=== PATIENT | female | born 1975 | race Caucasian/White ===

== ENCOUNTER 2017-03-05 01:12 | Observation (INO) | payer OTHER ==
[2017-03-05] VITALS (9 sets, daily range): BP systolic 112–156; BP diastolic 60–80; PULSE 80–110; RESP 16–18; TEMP 96.8–99.2; O2SAT 93–100
[~2017-03-05] VITALS: Ht 160 cm; Wt 97.8 kg
[~2017-03-05 01:12] MED LIST: ALBU8I INH; CLIN1CAP5 PO; PERC7.5T13 PO; PHEN37.5 PO; VALI5TAB PO
[2017-03-05] MEDS ORDERED: VENTAER INH (01:24)
[2017-03-05] MEDS ORDERED: SYMB80AE INH (01:24)
[2017-03-05] MEDS ORDERED: SODIUM CHLOR 0.9% 1000 ML INJ 1,000 ML IV SCH ×2 (01:29→02:45)
[2017-03-05] MEDS ORDERED: SODIUM CHLORIDE 0.9% FLUSH 10 ML FLUSH IV FLUSH PRN ×2 (01:30→11:00)
[2017-03-05] MEDS ORDERED: ONDANSETRON HCL 4 MG/2 ML VIAL IVP ONE (01:30)
[2017-03-05] MEDS ORDERED: MORPHINE SULFATE 8 MG/ML INJ IV PUSH ONE (01:30)
--- NOTE | 2017-03-05 01:32 | PD ---
HPI Chief Complaint: Abdominal Pain Time Seen by Provider: 01:26 Travel History International Travel<30 days: No Contact w/Intl Traveler<30days: No Traveled to known affect area: No History of Present Illness HPI 42-year-old female approximately 15 hours of right abdomen pain. Onset gradual. Pain is now constant. Severity moderate. No fever. Nausea reported as associated symptom. No vaginal discharge or bleed. Last menstruation 2 days prior. No similar prior episodes. PFSH Past Medical History Asthma: Yes Blood Disorders: No Anxiety: Yes Cancer: No Cardiovascular Problems: No Diminished Hearing: No Endocrine: No Genitourinary: No Immune Disorder: No Musculoskeletal: No Neurologic: No Psychiatric: Yes Reproductive: No Respiratory: Yes Tetanus Vaccination: Unknown Influenza Vaccination: No ?: Not LMP: 03/02/2017 : 1 Para: 1 Past Surgical History Abdominal Surgery: Yes (HERNIA REPAIR) Gynecologic Surgery: Yes (C SECTION) Pacemaker: No Other Surgery: Yes (abd tuck) Social History Alcohol Use: No Tobacco Use: No Substance Use: No Allergies-Medications (Allergen,Severity, Reaction): Coded Allergies: penicillin G (Unverified Allergy, Severe, HIVES & ITCHING, 03/05/17) sulfamethoxazole (Unverified Allergy, Severe, HIVES & ITCHING, 03/05/17) trimethoprim (Unverified Allergy, Severe, HIVES & ITCHING, 03/05/17) *MDRO Multi-Drug Resistant Organism (Unverified Allergy, Unknown, 03/05/17) MRSA 2013 Sulfa (Sulfonamide Antibiotics) (Unverified Allergy, Unknown, 03/05/17) Reported Meds & Prescriptions Reported Meds & Active Scripts Active Reported Symbicort Inh (Budesonide/Formoterol Fumarate) 80-4.5 Mcg/Act Aero 1 Puff INH Q12HR Ventolin Hfa 18 GM Inh (Albuterol Sulfate) 90 Mcg/Act Aer 2 Puff INH Q4-6H PRN Review of Systems Except as stated in HPI: all other systems reviewed are Neg Physical Exam Narrative GENERAL: 42-year-old female no acute distress pleasant SKIN: Warm and dry. HEAD: Atraumatic. Normocephalic. EYES: Pupils equal and round. No scleral icterus. No injection or drainage. ENT: No nasal bleeding or discharge. Mucous membranes pink and moist. NECK: Trachea midline. No JVD. CARDIOVASCULAR: Regular rate and rhythm. RESPIRATORY: No accessory muscle use. Clear to auscultation. Breath sounds equal bilaterally. GASTROINTESTINAL: Soft. Minimal tenderness palpation right lower quadrant. No flank tenderness percussion. MUSCULOSKELETAL: Extremities without clubbing, cyanosis, or edema. No obvious deformities. NEUROLOGICAL: Awake and alert. No obvious cranial nerve deficits. Motor grossly within normal limits. Five out of 5 muscle strength in the arms and legs. Normal speech. PSYCHIATRIC: Appropriate mood and affect; insight and judgment normal. Data Data Last Documented VS Vital Signs Date Time Temp Pulse Resp B/P (MAP) Pulse Ox O2 Delivery O2 Flow Rate FiO2 03/05/17 01:44 100 Room Air 03/05/17 01:14 99.2 106 16 Vital signs reviewed Orders Orders Complete Blood Count With Diff (03/05/17 01:29) Comprehensive Metabolic Panel (03/05/17 01:29) Lipase (03/05/17 01:29) Urinalysis - C+S If Indicated (03/05/17 01:29) Ct Abd/Pel W Iv Contrast(Rout) (03/05/17 01:29) Iv Access Insert/Monitor (03/05/17 01:29) Ecg Monitoring (03/05/17:29) Oximetry (03/05/17 01:29) Ondansetron Inj (Zofran Inj) (03/05/17 01:30) Sodium Chlor 0.9% 1000 Ml Inj (Ns 1000 M (03/05/17 01:29) Sodium Chloride 0.9% Flush (Ns Flush) (03/05/17 01:30) Morphine Inj (Morphine Inj) (03/05/17 01:30) Ed Urine Pregnancytest Poc (03/05/17 01:29) Iohexol 350 Inj (Omnipaque 350 Inj) (03/05/17 02:00) Ciprofloxacin 400 Mg Premix (Cipro 400 M (03/05/17 02:30) Metronidazole 500 Mg Inj (Flagyl 500 Mg (03/05/17 02:30) Sodium Chlor 0.9% 1000 Ml Inj (Ns 1000 M (03/05/17 02:45) Admit Order (Ed Use Only) (03/05/17 02:31) Vital Signs (Adult) Q4H (03/05/17 02:31) Diet Npo (03/05/17 Breakfast) Activity Oob With Assistance (03/05/17 02:31) Ondansetron Inj (Zofran Inj) (03/05/17 02:45) Morphine Inj (Morphine Inj) (03/05/17 02:45) ^ Call Physician (03/05/17 02:31) Labs Laboratory Tests Test 03/05/17 01:37 White Blood Count 13.6 TH/MM3 Red Blood Count 4.53 MIL/MM3 Hemoglobin 12.5 GM/DL Hematocrit 38.9 % Mean Corpuscular Volume 85.8 FL Mean Corpuscular Hemoglobin 27.6 PG Mean Corpuscular Hemoglobin Concent 32.2 % Red Cell Distribution Width 14.2 % Platelet Count 255 TH/MM3 Mean Platelet Volume 9.2 FL Neutrophils (%) (Auto) 77.2 % Lymphocytes (%) (Auto) 13.6 % Monocytes (%) (Auto) 5.9 % Eosinophils (%) (Auto) 2.7 % Basophils (%) (Auto) 0.6 % Neutrophils # (Auto) 10.5 TH/MM3 Lymphocytes # (Auto) 1.9 TH/MM3 Monocytes # (Auto) 0.8 TH/MM3 Eosinophils # (Auto) 0.4 TH/MM3 Basophils # (Auto) 0.1 TH/MM3 CBC Comment DIFF FINAL Differential Comment Urine Color YELLOW Urine Turbidity HAZY Urine pH 5.0 Urine Specific [place] 1.024 Urine Protein TRACE mg/dL Urine Glucose (UA) NEG mg/dL Urine Ketones NEG mg/dL Urine Occult Blood LARGE Urine Nitrite NEG Urine Bilirubin NEG Urine Urobilinogen LESS THAN 2.0 MG/DL Urine Leukocyte Esterase NEG Urine RBC 4 /hpf Urine WBC 3 /hpf Urine Squamous Epithelial Cells 4 /hpf Urine Bacteria RARE /hpf Urine Hyaline Casts 1 /lpf Urine Mucus FEW /lpf Microscopic Urinalysis Comment CULT NOT INDICATED Blood Urea Nitrogen 10 MG/DL Creatinine 0.83 MG/DL Random Glucose 92 MG/DL Total Protein 7.9 GM/DL Albumin 3.7 GM/DL Calcium Level 9.1 MG/DL Alkaline Phosphatase 86 U/L Aspartate Amino Transf (AST/SGOT) 14 U/L Alanine Aminotransferase (ALT/SGPT) 24 U/L Total Bilirubin 0.4 MG/DL Sodium Level 139 MEQ/L Potassium Level 4.0 MEQ/L Chloride Level 104 MEQ/L Carbon Dioxide Level 27.8 MEQ/L Anion Gap 7 MEQ/L Estimat Glomerular Filtration Rate 75 ML/MIN Lipase 150 U/L MDM Medical Decision Making Medical Screen Exam Complete: Yes Emergency Medical Condition: Yes Medical Record Reviewed: Yes Differential Diagnosis Constipation, Gastritis, Acute Cholecystitis, Biliary Colic, Pancreatitis, LAND , Hepatitis, Bowel Obstruction, Cystitis, Mesenteric Ischemia, AAA, Appendicitis , Renal Stone/Hydronephrosis, GERD, perforated viscous Narrative Course CBC & BMP Diagram 03/05/17 01:37 Total Protein 7.9, Albumin 3.7, Calcium Level 9.1, Alkaline Phosphatase 86, Aspartate Amino Transf (AST/SGOT) 14 L, Alanine Aminotransferase (ALT/SGPT) 24, Total Bilirubin 0.4 CT pelvis reveals acute appendicitis without abscess Patient will be admitted to general surgery, Dr. Alejandre, with plan for AM appendectomy. Sepsis Criteria SIRS Criteria (2 or more): Heart rate over 90, WBC > 22165, < 4000 or > 10% bands Sepsis Criteria (SIRS+source): Infect source susp/known Diagnosis Primary Impression: Appendicitis Qualified Codes: K35.3 - Acute appendicitis with localized peritonitis Admitting Information Admitting Physician Requests: Observation Brayan Murphy MD Mar 05, 2017 01:32
[2017-03-05 02:00] LABS: AUTOMATED NEUTROPHIL # 10.5 TH/MM3 (1.8-7.7); BASOPHIL # 0.1 TH/MM3 (0-0.2); BASOPHIL % 0.6 % (0.0-2.0); EOSINOPHIL # 0.4 TH/MM3 (0-0.4); EOSINOPHIL % 2.7 % (0.0-4.0); HEMATOCRIT 38.9 % (35.0-46.0); HEMO FLAGS DIFF FINAL; LYMPH % 13.6 % (9.0-44.0); LYMPHOCYTE # 1.9 TH/MM3 (1.0-4.8); MEAN CELL VOLUME 85.8 FL (80.0-100.0); MEAN CORPUSCULAR HEMOGLOBIN 27.6 PG (27.0-34.0); MEAN CORPUSCULAR HGB CONC 32.2 % (32.0-36.0); MONO % 5.9 % (0.0-8.0); NEUT % 77.2 % (16.0-70.0); PLATELET COUNT 255 TH/MM3 (150-450); RED BLOOD COUNT 4.53 MIL/MM3 (4.00-5.30); RED CELL DISTRIBUTION WIDTH 14.2 % (11.6-17.2); WHITE BLOOD COUNT 13.6 TH/MM3 (4.0-11.0)
[2017-03-05] MEDS ORDERED: IOHEXOL 350 MG/ML 10 ML VIAL (for RAD DIAG) IVCONTRAST ONE (02:00)
[2017-03-05 02:18] LABS: BACTERIA, URINE RARE /hpf; BLOOD, URINE LARGE (NEG); COMMENT (UR) CULT NOT INDICATED; CULTURE IF INDICATED CULT NOT INDICATED; GLUCOSE,URINE NEG (NEG); HYALINE CAST, URINE 1 /lpf (RARE); KETONE, URINE NEG (NEG); MUCUS URINE FEW /lpf (OCC); NITRITE,URINE NEG (NEG); SQUAMOUS EPITHELIAL CELL URINE 4 /hpf (0-5); URINE COLOR YELLOW (YELLW/STRAW)
--- NOTE | 2017-03-05 02:23 | RADRPT ---
EXAM DATE/TIME: 03/05/2017 01:55 [facility] COMPARISON: No previous studies available for comparison. INDICATIONS : Right sided abdominal pain. IV CONTRAST: 77 cc Omnipaque 350 (iohexol) IV ORAL CONTRAST: No oral contrast ingested. RADIATION DOSE: 17.86 CTDIvol (mGy) MEDICAL HISTORY : None Hernia. SURGICAL HISTORY : section. Hernia repair. ENCOUNTER: Initial ACUITY: 1 day PAIN SCALE: 7/10 LOCATION: Right abdomen TECHNIQUE: Volumetric scanning of the abdomen and pelvis was performed. Using automated exposure control and ad justment of the mA and/or kV according to patient size, radiation dose was kept as low as reasonably achievable to obtain optimal diagnostic quality images. DICOM format image data is available electro nically for review and comparison. FINDINGS: Lung bases are clear. Liver is enlarged to 22.1 cm in length. Spleen is within normal limits for size with a small cyst anteriorly measuring about 1 cm. Adrenals, kidneys and pancreas unremarkable. No calcified gallstones or biliary ductal dilatation. Within the right lower quadrant the distal appendix is distended to about 11 mm with some periappendi ceal inflammatory changes. There is also a faintly calcified appendicolith suspected in the midportio n of the appendix. There is a suspected right ovarian cyst measuring 2.3 cm in diameter. There is no free fluid in the pelvis. No free air. CONCLUSION: 1. Distal appendix distended to 11 mm with mild periappendiceal inflammatory changes and faintly calc ified appendicolith in the mid-appendix. Findings are characteristic of acute appendicitis without ab scess, obstruction or free air. 2. 2.3 cm right ovarian cyst. 3. Hepatomegaly to 22.1 cm. Eddie Woodson MD on March 05, 2017 at 2:15 Board Certified Radiologist. This report was verified electronically.
[2017-03-05 02:30] LABS: ALT (GPT) 24 U/L (10-53); ANION GAP 7 MEQ/L (5-15); AST (GOT) 14 U/L (15-37); BICARBONATE 27.8 MEQ/L (21.0-32.0); BLOOD UREA NITROGEN 10 MG/DL (7-18); CHLORIDE 104 MEQ/L (98-107); GLOMERULAR FILTRATION RATE 75 ML/MIN (>89); SODIUM (NA) 139 MEQ/L (136-145)
[2017-03-05] MEDS ORDERED: CIPROFLOXACIN 400 MG PREMIX 200 ML IV ONE (02:30)
[2017-03-05] MEDS ORDERED: metroNIDAZOLE 500 MG INJ 100 ML IV ONE (02:30)
[2017-03-05 02:31] LABS: ALKALINE PHOSPHATASE 86 U/L (45-117); TOTAL BILIRUBIN ADULT 0.4 MG/DL (0.2-1.0)
[2017-03-05] MEDS ORDERED: MORPHINE SULFATE 8 MG/ML INJ IV PUSH PRN (02:45)
[2017-03-05] MEDS ORDERED: ONDANSETRON HCL 4 MG/2 ML VIAL IV PRN ×2 (02:45→11:00)
[2017-03-05] MEDS ORDERED: MORPHINE SULFATE 4 MG/ML INJ IV PUSH ONE (07:45)
--- NOTE | 2017-03-05 10:16 | HHI.PR ---
Immediate Post Op Note Procedure Date: Mar 05, 2017 Pre Op Diagnosis: acute appendicitis Post Op Diagnosis: same Surgeon: Luciano Bush MD [employer] Teacher Assistant(s): see or sheet Procedure: lap appy Findings: distended appendix Complications: none Specimen(s) removed: appendix Estimated blood loss: 5cc Anesthesia: General Drains: None Patient to: PACU Patient Condition: Good Luciano Bush MD Mar 05, 2017 10:16
[2017-03-05] MEDS ORDERED: BUPIVACAINE/EPINEPHRINE 0.25% 50 ML VIAL ONE (10:21)
[2017-03-05] MEDS ORDERED: MIDAZOLAM HCL 2 MG/2 ML VIAL ONE (10:52)
[2017-03-05] MEDS ORDERED: *RESP: ALBUTEROL 2.5 MG/3 ML NEB (PRN) PERIprocedural Use ONLY NEB ONE (10:54)
[2017-03-05] MEDS ORDERED: D5-NS + KCL 20 MEQ INJ 1,000 ML IV SCH (10:57)
[2017-03-05] MEDS ORDERED: HYDROmorphone HCL PF 1 MG/ML VIAL IV PRN (11:00)
[2017-03-05] MEDS: DOCUSATE SODIUM 100 MG CAP PO SCH ×2 (11:00→20:28)
[2017-03-05] MEDS ORDERED: diphenhydrAMINE HCL 25 MG CAP PO PRN (11:00)
[2017-03-05] MEDS: SODIUM CHLORIDE 0.9% FLUSH 10 ML FLUSH IV FLUSH SCH ×2 (11:00→20:28)
[2017-03-05] MEDS ORDERED: Post-op Orders (for Pharmacy) MISC XX ONE (11:00)
[2017-03-05] MEDS ORDERED: DO NOT ADM ANY ANTICOAGULANT DRUGS PRN (11:58)
[2017-03-05] MEDS ORDERED: ONDANSETRON HCL 4 MG/2 ML VIAL IV PUSH ONE (12:00)
[2017-03-05] MEDS ORDERED: LACTATED RINGER'S 1000 ML INJ 1,000 ML IV ONE (12:00)
[2017-03-05] MEDS ORDERED: PROPOFOL 200 MG/20 ML AMP IV ONE (12:00)
[2017-03-05] MEDS ORDERED: NEOSTIGMINE 3 MG/3 ML SYR IV ONE (12:00)
[2017-03-05] MEDS ORDERED: *morphine SULFATE 8 MG/ML PERIprocedure ONLY ONE (12:23)
[2017-03-05] MEDS ORDERED: metroNIDAZOLE 500 MG INJ 100 ML IV SCH (13:00)
[2017-03-05] MEDS: ACETAMINOPHEN/HYDROcodone 325 MG/5 MG TAB PO PRN ×3 (14:24→23:05)
[2017-03-05] MEDS ORDERED: CIPROFLOXACIN 400 MG PREMIX 200 ML IV SCH ×2 (15:00→23:00)
[2017-03-05] MEDS: metroNIDAZOLE 500 MG INJ 100 ML IV SCH (20:28)
--- NOTE | 2017-03-05 20:50 | MH ---
cc: VANE HA MD DATE OF ADMISSION 03/05/2017 CHIEF COMPLAINT Right lower quadrant abdominal pain, appendicitis. HISTORY OF PRESENT ILLNESS The patient is 42-year-old female who presents with acute onset of abdominal pain. She states the pain started yesterday at 10:00 a.m. It started in the umbilicus area and continued to get worse, radiating down to the right lower quadrant. She said the pain was initially 04/10 now an 8/10 and did not get better. She states no exacerbating or alleviating factors, however. Denies any fevers. Does complain of nausea, denies vomiting. She came to emergency department for further evaluation including a leukocytosis and a CT scan showing acute appendicitis. Therefore surgery consulted for further evaluation. PAST MEDICAL HISTORY 1. Asthma. 2. Anxiety. 3. History of hernia. PAST SURGICAL HISTORY 1. History of hernia repair x2 bilateral inguinal. 2. Ventral hernia repair. 3. . 4. Tummy tuck. SOCIAL HISTORY Denies smoking, ethyl alcohol of IVDA. ALLERGIES THE PATIENT HAS ALLERGIES TO SULFA, PENICILLIN, TRIMETHOPRIM. FAMILY HISTORY Denies diabetes or hypertension. MEDICATIONS See the EMR. REVIEW OF SYSTEMS GENERAL: Denies fevers, chills. HEENT: Denies eye pain, ear pain. NECK: Denies swelling or pain. Lungs: Denies cough or wheeze. HEART: Denies chest pain or palpitations. ABDOMEN: Complained of nausea, abdominal pain. Denies vomiting. GENITOURINARY: Denies dysuria, hematuria. ENDOCRINE: Denies polyuria, polydipsia. MUSCULOSKELETAL: Denies arthralgias or myalgias. NEUROLOGIC: Denies numbness or tingling. PHYSICAL EXAMINATION GENERAL: No acute distress. VITAL SIGNS: Temperature 99.2, pulse 106, respirations 16, blood pressure 125/45, 100% saturation on room air. HEENT: PERRLA, pupils equal round reactive. Normocephalic, atraumatic. NECK: Supple. Trachea midline. LUNGS: Clear to auscultation bilateral expansion. HEART: S1-S2 regular rhythm. ABDOMEN: Soft, positive tenderness to palpation right lower quadrant. Well-healed tummy tuck surgical scars. No evidence of umbilicus. MUSCULOSKELETAL: Warm, well-perfused. No clubbing. NEUROLOGIC: 5/5 motor all extremities. Alert and oriented times three. PSYCHIATRIC: Good mood. Appropriate affect. LABORATORY AND DIAGNOSTIC DATA WBC 13.6, hemoglobin 12.5, hematocrit 38.9, platelets 255. Sodium 139, potassium 4.0, chloride 104, BUN 10, creatinine 0.8, calcium of 9.1, AST 14, ALT 24. Albumin 3.7, lipase 150. IMAGING CT scan reviewed by myself showing acute appendicitis, distal appendix 1.1 cm, mild inflammation, calcified appendicolith. No free air. ASSESSMENT The patient 42-year-old female acute onset of abdominal pain, acute appendicitis. PLAN After full clinical, radiologic and laboratory workup the patient with above-named issues including acute appendicitis. At this point the patient will need IV antibiotics, n.p.o., IV fluids. We will plan to take the patient emergently to the operating room for a laparoscopic appendectomy. Discussed with the patient in detail. MD CAMDEN Li/CORNELIA /7:48 PM /8:29 PM
[2017-03-05] MEDS ORDERED: ALBUTEROL SULFATE 90 MCG/ACT HFA 18 GM INHALER INH PRN (22:30)
[2017-03-05] MEDS: BUDESONIDE-FORMOTEROL 160/4.5 MCG INHALER INH SCH (23:10)
[2017-03-06 03:55] VITALS: BP 104/61; PULSE 83; RESP 17; TEMP 97.2; O2SAT 96
[2017-03-06] MEDS: metroNIDAZOLE 500 MG INJ 100 ML IV SCH (04:37)
[2017-03-06] MEDS: ACETAMINOPHEN/HYDROcodone 325 MG/5 MG TAB PO PRN ×2 (04:37→08:35)
[2017-03-06 07:48] LABS: AUTOMATED NEUTROPHIL # 12.3 TH/MM3 (1.8-7.7); BASOPHIL % 0.1 % (0.0-2.0); EOSINOPHIL % 0.1 % (0.0-4.0); HEMATOCRIT 35.3 % (35.0-46.0); HEMO FLAGS DIFF FINAL; LYMPH % 7.5 % (9.0-44.0); MEAN CELL VOLUME 86.8 FL (80.0-100.0); MEAN CORPUSCULAR HEMOGLOBIN 28.2 PG (27.0-34.0); MEAN CORPUSCULAR HGB CONC 32.5 % (32.0-36.0); MONO % 4.6 % (0.0-8.0); NEUT % 87.7 % (16.0-70.0); PLATELET COUNT 246 TH/MM3 (150-450); RED BLOOD COUNT 4.06 MIL/MM3 (4.00-5.30); RED CELL DISTRIBUTION WIDTH 14.2 % (11.6-17.2)
[2017-03-06 08:00] VITALS: BP 118/74; PULSE 76; RESP 18; TEMP 95.7; O2SAT 98
[2017-03-06 08:10] LABS: BICARBONATE 25.1 MEQ/L (21.0-32.0); POTASSIUM 3.9 MEQ/L (3.5-5.1)
[2017-03-06] MEDS: DOCUSATE SODIUM 100 MG CAP PO SCH (08:35)
[2017-03-06] MEDS: SODIUM CHLORIDE 0.9% FLUSH 10 ML FLUSH IV FLUSH SCH (08:46)
[2017-03-06] MEDS: BUDESONIDE-FORMOTEROL 160/4.5 MCG INHALER INH SCH (09:00)
--- NOTE | 2017-03-07 08:45 | MP ---
cc: VANE BUSH MD DATE OF SURGERY: 03/05/2017 PREOPERATIVE DIAGNOSIS Acute appendicitis. POSTOPERATIVE DIAGNOSIS Acute appendicitis. PROCEDURE PERFORMED Laparoscopic appendectomy. SURGEON Dr. Vane Bush. DEVELOPMENT REP Taina. ANESTHESIA General endotracheal. IV FLUIDS See anesthesia sheet. ESTIMATED BLOOD LOSS 5 cc. DRAINS None. COMPLICATIONS None. WOUND CLASSIFICATION Clean contaminated. SPECIMEN Appendix. FINDINGS Distended inflamed appendix, nonperforated. INDICATION The patient is a 42-year-old female who presented with acute onset of right lower quadrant abdominal pain including a CT scan for evaluation showing an indurated dilated appendix. She also had leukocytosis. Therefore, the decision was made for operative intervention including laparoscopic appendectomy. DETAILS OF PROCEDURE The patient was taken to the operating suite and placed in the supine position. She was prepped and draped in the usual sterile fashion after induction of general endotracheal anesthesia. A brief timeout was done stating correct patient, procedure and surgical site, and all were in agreement with this. Attention was first directed to the lower mid abdomen. The patient had a previous tummy tuck, therefore the umbilicus was not present. Local anesthetic was injected. A small cornelio incision was made. A Visiport was used and intra-abdominal placement confirmed under direct visualization. The abdomen was insufflated to 15 mmHg pneumoperitoneum. On cursory inspection there was no evidence of injury. Two other ports were placed, one 12 mm left lower quadrant port followed by a 5 mm suprapubic port. The patient was placed in Trendelenburg airplaned to the left. The right lower quadrant was explored identifying an indurated inflamed appendix. This was grasped and mobilized. A [place] was used to dissect through the mesoappendix at the appendiceal base. A 845 Endo NILES stapler was used to transect the base of the appendix. Next, the mesoappendix was mobilized to the lateral peritoneal attachments. A white load Endo NILES stapler was used to transect the mesoappendix. Bovie electrocautery was used for hemostasis. Suction irrigation was done as well. The patient was then flattened. The left lower quadrant incision was closed with a suture closure device with 0 Vicryl. Local anesthetic was injected at all ports. The ports were closed with 4-0 Monocryl subcuticular sutures. Sterile dressings were placed with Mastisol and Steri-Strips. The patient tolerated the procedure well. There were no intraoperative complications. The patient was extubated and taken to the PACU. All lap and instrument counts were correct at the end of the case. MD CAMDEN Li/YAZMIN /6:15 PM /8:32 AM
== END 2017-03-06 12:31 | disposition home or self-care (01) ==
LOC: NEPE 01:12 → NEDA 02:36 → NEPFCDU 03:28 → N07B 09:40 → N06A 12:51
PROVIDERS: ADMIT Surgery; ATTEND Surgery
DX: K35.3 Acute appendicitis with localized peritonitis (principal); J45.909 Unspecified asthma, uncomplicated
CPT/HCPCS: 00840; 44970; 74177; 80048; 80053; 81001; 83690; 84703; 85025; 88304; 94150; 96361; 96365; 96366; 96367; 96368; 96375; 96376; 99285; G0378; J0744; J2250; J2270; J2405; J2710; J3010; J3480; J7030; J7120; J7613; Q9967